=== PATIENT | male | born 1945 | race Caucasian/White ===

== ENCOUNTER → 2024-08-03 | Outpatient (CLI) | payer MEDICARE ==
[~2024-08-03] MED LIST: AMIO200T68 PO; AMLO-258 PO; AMOX-426 PO; CARV6.25 PO; FURO20TA4 PO; HYDR25TA PO; LOSA100T59 PO; PANT40TA54 PO; POTA10CA95 PO; SENN-107 PO; SIMV-43 PO; WARF-67 PO; WARF4TAB72 PO
== END | disposition home or self-care (01) ==
LOC: RAH 10:11
PROVIDERS: ATTEND Internal Medicine Medical Oncology
DX: I65.23 Occlusion and stenosis of bilateral carotid arteries (principal)
CPT/HCPCS: 93880